=== PATIENT | female | born 1975 | race Caucasian/White ===

== ENCOUNTER 2017-07-20 20:59 | Emergency (ER) | payer BC ==
[2017-07-20] MEDS ORDERED: IOHEXOL 300 MG/ML 100ML VIAL. IV (21:30)
[2017-07-20] MEDS: IV NORMAL SALINE 1000ML BAG 1,000 ML IV (21:31)
[2017-07-20] MEDS: ONDANSETRON PF 4 MG/2 ML VIAL. IV (21:31)
[2017-07-20] MEDS: KETOROLAC 30 MG/ML INJ. IV (21:31)
[2017-07-20] MEDS: fentaNYL PF VIAL 100 MCG/2 ML VIAL IV (21:32)
[2017-07-20 21:36] LABS: ADD MAN DIFF? NO
[2017-07-20 21:37] LABS: BASO # 0.1 x10^3/uL (0.0-0.2); BASO % 1 % (0-3); EOS # 0.2 x10^3/uL (0.0-0.7); EOS % 2 % (0-3); HEMATOCRIT 36.4 % (36.0-47.0); HEMOGLOBIN 12.1 g/dL (12.0-15.5); LYMPH # 2.9 x10^3/uL (1.0-4.8); LYMPH % 25 % (24-48); MEAN CORPUSCULAR HEMOGLOBIN 29 pg (25-35); MEAN CORPUSCULAR HGB CONC 33 g/dL (31-37); MEAN CORPUSCULAR VOLUME 86 fL (79-100); MONO # 0.5 x10^3/uL (0.0-1.1); MONO % 4 % (0-9); NEUT # 7.8 x10^3uL (1.8-7.7); NEUT % 68 % (31-73); PLATELET COUNT 311 x10^3/uL (140-400); RED BLOOD COUNT 4.24 x10^6/uL (3.50-5.40); RED CELL DISTRIBUTION WIDTH 15.4 % (11.5-14.5); WHITE BLOOD COUNT 11.4 x10^3/uL (4.0-11.0)
[2017-07-20] MEDS ORDERED: CONTRAST GIVEN MC (21:45)
[2017-07-20 21:50] LABS: ETHANOL < 10 mg/dL (0-10)
[2017-07-20 21:50] LABS: ANION GAP 15 (6-14); BLOOD UREA NITROGEN 11 mg/dL (7-20); BUN/CREATININE RATIO 14 (6-20); CALCIUM 8.9 mg/dL (8.5-10.1); CARBON DIOXIDE 20 mmol/L (21-32); CHLORIDE 109 mmol/L (98-107); CREATININE 0.8 mg/dL (0.6-1.0); GFR 79.4; GLUCOSE 124 mg/dL (70-99); POTASSIUM 3.6 mmol/L (3.5-5.1); SODIUM 144 mmol/L (136-145)
[2017-07-20 21:56] LABS: ALBUMIN 3.6 g/dL (3.4-5.0); ALBUMIN/GLOBULIN RATIO 0.9 (1.0-1.7); ALK PHOS 67 U/L (46-116); ALT (SGPT) 29 U/L (14-59); AST (SGOT) 17 U/L (15-37); LIPASE 135 U/L (73-393); TOTAL BILIRUBIN 0.2 mg/dL (0.2-1.0); TOTAL PROTEIN 7.5 g/dL (6.4-8.2)
[2017-07-20 22:00] LABS: BILIRUBIN,URINE NEGATIVE (NEG); COLOR,URINE YELLOW; GLUCOSE,URINE NEGATIVE (NEG); NITRITE,URINE NEGATIVE (NEG); PH,URINE 5.5; PROTEIN,URINE NEGATIVE (NEG-TRACE); UROBILINOGEN,URINE 0.2 mg/dL (0.2 mg/dL)
[2017-07-20 22:07] LABS: BARBITURATES NEG (NEG); BENZODIAZEPINES POS (NEG); CANNABINOIDS NEG (NEG); COCAINE NEG (NEG); METHADONE NEG (NEG); OPIATES POS (NEG); PHENCYCLIDINE NEG (NEG)
[2017-07-20 22:08] LABS: BACTERIA,URINE FEW /HPF (0-FEW); CLARITY,URINE CLEAR; RBC,URINE 20-40 /HPF (0-2); SQUAMOUS EPITHELIAL CELL,UR FEW /LPF; WBC,URINE OCC /HPF (0-4)
[2017-07-20 22:09] LABS: AMPHETAMINE/METHAMPHETAMINE NEG (NEG); ETHANOL, URINE NEG (NEG)
[2017-07-20] MEDS: MORPHINE SULFATE 10 MG/ML VIAL. IV ×2 (22:45→23:40)
[2017-07-21] MEDS: TAMSULOSIN 0.4 MG CAP.ER.24H. PO (00:16)
[2017-07-21] MEDS: oxyCODONE/APAP 5/325 1 TAB TABLET PO (00:16)
[2017-07-21] MEDS: MORPHINE SULFATE 10 MG/ML VIAL. IV (00:45)
== END 2017-07-21 01:35 | disposition home or self-care (01) ==
LOC: ER 07-21 01:35
DX: N13.2 Hydronephrosis with renal and ureteral calculous obstruction (principal); F41.9 Anxiety disorder, unspecified; F32.9 Major depressive disorder, single episode, unspecified; E11.9 Type 2 diabetes mellitus without complications; I10 Essential (primary) hypertension; G43.909 Migraine, unspecified, not intractable, without status migrainosus; Z88.0 Allergy status to penicillin
CPT/HCPCS: 36415; 74177; 76830; 76856; 80053; 80307; 81001; 83690; 83735; 85025; 96361; 96374; 96375; 96376; 99285-25; G0480; J1885; J2270; J2405; J3010; J7030